=== PATIENT | male | born 1985 | race African-American/Black ===

== ENCOUNTER 2017-12-30 19:50 | Emergency (ER) | payer SELFPAY ==
[~2017-12-30 19:50] MED LIST: OMEP10CA4 PO; [UNRECOGNIZED DRUG - REMARK]
--- NOTE | 2017-12-30 20:59 | NUR ---
CALLED NO ANSWER IN LOBBY
--- NOTE | 2017-12-30 22:56 | NUR ---
CALLED NO ANSWER IN LOBBY
== END 2017-12-30 23:00 | disposition left against medical advice (07) ==
LOC: ER 19:55
DX: Z53.21 Procedure and treatment not carried out due to patient leaving prior to being seen by health care provider (principal)
CPT/HCPCS: J7030

== ENCOUNTER 2018-12-13 02:46 | Emergency (ER) | payer MEDICAID, OTHER ==
[~2018-12-13] VITALS: Ht 182.9 cm; Wt 86.2 kg
[2018-12-13 03:18] VITALS: BP 158/109
== END 2018-12-13 03:39 | disposition home or self-care (01) ==
LOC: ER 02:48
DX: Z41.2 Encounter for routine and ritual male circumcision (principal); Z60.2 Problems related to living alone
CPT/HCPCS: Z7502

== ENCOUNTER 2019-03-09 15:45 | Emergency (ER) | payer MEDICAID ==
[~2019-03-09] VITALS: Ht 180.3 cm; Wt 95.3 kg
--- NOTE | 2019-03-09 15:47 | NUR ---
CALLED FOR TRIAGE NOT IN THE WAITING ROOM
--- NOTE | 2019-03-09 15:54 | NUR ---
called for triage not in the waiting room
--- NOTE | 2019-03-09 16:10 | NUR ---
CAME IN FOR INFECTED PENIS S/P CIRCUMCISION 6 MONTHS AGO. TO ER BED 16, HOOKED TO MONITOR, CHANGED TO GOWN, PROVIDED W WARM BLANKET, AWAITING MD STEELE.
--- NOTE | 2019-03-09 16:20 | NUR ---
DR GRAHAM AT BEDSIDE
--- NOTE | 2019-03-09 16:40 | NUR ---
Patient discharged to home in stable condition. Written and verbal after care instructions given. Patient verbalizes understanding of instruction.
[2019-03-09 16:59] VITALS: BP 138/98
== END 2019-03-09 16:50 | disposition home or self-care (01) ==
LOC: ER 15:50
DX: N48.22 Cellulitis of corpus cavernosum and penis (principal); Z98.890 Other specified postprocedural states; Z60.2 Problems related to living alone

== ENCOUNTER 2019-06-03 20:14 | Emergency (ER) | payer MEDICAID ==
[~2019-06-03] VITALS: Ht 180.3 cm; Wt 86.2 kg
[~2019-06-03 20:14] MED LIST changes: -OMEP10CA4 PO; +OMEP10CA5 PO
[2019-06-03 20:20] VITALS: BP 138/101
--- NOTE | 2019-06-03 20:36 | NUR ---
BIBS W/ SUTURES ON THE POSTERIOR SCALP TO BE REMOVED IN THE ER. SUTURES C/I W/ NO S/S OF INFECTION.
== END 2019-06-03 21:13 | disposition home or self-care (01) ==
LOC: ER 20:18
DX: S01.01XD Laceration without foreign body of scalp, subsequent encounter (principal); Z98.890 Other specified postprocedural states; Z60.2 Problems related to living alone; Z41.2 Encounter for routine and ritual male circumcision; X58.XXXD Exposure to other specified factors, subsequent encounter

== ENCOUNTER 2020-01-30 08:28 | Emergency (ER) | payer MEDICAID ==
[~2020-01-30] VITALS: Ht 182.9 cm; Wt 90.7 kg
[2020-01-30 08:39] VITALS: BP 151/115
== END 2020-01-30 09:04 | disposition home or self-care (01) ==
LOC: ER 08:31
DX: S31.119D Laceration without foreign body of abdominal wall, unspecified quadrant without penetration into peritoneal cavity, subsequent encounter (principal); K21.9 Gastro-esophageal reflux disease without esophagitis; Z98.890 Other specified postprocedural states; Z60.2 Problems related to living alone; Z79.899 Other long term (current) drug therapy; X58.XXXD Exposure to other specified factors, subsequent encounter

== ENCOUNTER 2020-02-01 09:40 | Emergency (ER) | payer MEDICAID ==
[~2020-02-01] VITALS: Ht 182.9 cm; Wt 90.7 kg
[2020-02-01 09:40] VITALS: BP 152/108
--- NOTE | 2020-02-01 11:02 | NUR ---
TO ER CHAIR 1,NO APPARENT CHANGE IN CONDITION
== END 2020-02-01 11:23 | disposition home or self-care (01) ==
LOC: ER 09:44
DX: S31.115A Laceration without foreign body of abdominal wall, periumbilic region without penetration into peritoneal cavity, initial encounter (principal); K21.9 Gastro-esophageal reflux disease without esophagitis; Z98.890 Other specified postprocedural states; Z60.2 Problems related to living alone; Z79.899 Other long term (current) drug therapy; X58.XXXA Exposure to other specified factors, initial encounter; Y93.89 Activity, other specified; Y92.89 Other specified places as the place of occurrence of the external cause; Y99.8 Other external cause status